=== PATIENT | female | born 1960 | race Caucasian/White ===

== ENCOUNTER 2017-10-24 11:03 | Emergency (ER) | payer SELFPAY ==
[~2017-10-24 11:03] MED LIST: CLIN150 PO; IBUP-232 PO; NORC5TAB PO
[2017-10-24 11:06] VITALS: BP 117/70; PULSE 61; RESP 17; TEMP 97.9; O2SAT 98
--- NOTE | 2017-10-24 11:22 | PD ---
HPI Chief Complaint: Oral / Dental Pain or Problem Time Seen by Provider: 11:13 Travel History International Travel<30 days: No Contact w/Intl Traveler<30days: No Traveled to known affect area: No History of Present Illness HPI 57 y female has noticed these lesions on her tongue for approximately 1-2 years. States that within the last 1-2 months they have become more painful and she is having difficulty with talking and swallowing. She is here today because her mother insisted she come in. Patient denies fever, chills, chest pain, or significant shortness of breath. Does state that she has occasional lightheadedness but none today. Also states she concerned because she has unexplained weight loss. She does smoke. She is here with her mother today who is concerned or her well-being. Apparently, pt has not been able to follow up with a primary secondary to insurance changes. PFSH Past Medical History Asthma: Yes Anxiety: Yes Depression: Yes Diminished Hearing: No Immunizations Current: No ?: Not Menopausal: Yes Tubal Ligation: Yes Past Surgical History Appendectomy: Yes Social History Alcohol Use: Yes Tobacco Use: Yes Substance Use: Yes (ALCOHOL TONIGHT) Allergies-Medications (Allergen,Severity, Reaction): Coded Allergies: penicillin G (Unverified Allergy, Severe, HIVES, 10/24/17) Reported Meds & Prescriptions Reported Meds & Active Scripts Active Magic Mouthwash Adult Liq (Multi-Ingredient Mouthwash/Gargle) 120 Ml Susp 10 Ml SWISH-SWAL ACHS 10 Days Each 5mL contains: Nystatin 200,000units, Diphenhydramine 4.25mg, Viscous Lidocaine 10mg, Deluca syrup 0.8 mL Cleocin (Clindamycin HCl) 150 Mg Cap 150 Mg PO Q6H Ibuprofen 600 Mg Tab 600 Mg PO Q6H PRN [place] (Hydrocodone-Acetaminophen) 5-325 mg Tab 1-2 Tab PO Q6H PRN Review of Systems Except as stated in HPI: all other systems reviewed are Neg Physical Exam Narrative GENERAL: Well developed, appears older than stated age, thin. SKIN: Warm and dry. HEAD: Normocephalic. EYES: No scleral icterus. No injection or drainage. Mouth: sublingual area- cauliflower appearing lesion, approx 5mm x 2mm, non friable with white plaques in surrounding mucosa. NECK: Supple, trachea midline. No JVD or lymphadenopathy. Mild TTP to anterior cervical chain CARDIOVASCULAR: Regular rate and rhythm without murmurs, gallops, or rubs. RESPIRATORY: Breath sounds equal bilaterally. No accessory muscle use. GASTROINTESTINAL: Abdomen soft, non-tender, nondistended. MUSCULOSKELETAL: No cyanosis, or edema. BACK: Nontender without obvious deformity. No CVA tenderness. Data Data Last Documented VS Vital Signs Date Time Temp Pulse Resp B/P (MAP) Pulse Ox O2 Delivery O2 Flow Rate FiO2 10/24/17 11:41 10/24/17 11:06 97.9 61 17 98 Room Air Orders Orders Ed Discharge Order (10/24/17 11:24) MDM Medical Decision Making Medical Screen Exam Complete: Yes Emergency Medical Condition: Yes Differential Diagnosis Oral candidiasis versus tongue lesion vs cellulitis Narrative Course 57 y female has noticed these lesions on her tongue for approximately 1-2 years. States that within the last 1-2 months they have become more painful and she is having difficulty with talking and swallowing. She is here today because her mother insisted she come in. Patient denies fever, chills, chest pain, or significant shortness of breath. Does state that she has occasional lightheadedness but none today. Also states she concerned because she has unexplained weight loss. She does smoke. She is here with her mother today who is concerned or her well-being. Apparently, pt has not been able to follow up with a primary secondary to insurance changes. Vital signs stable Physical exam consistent with oral candidiasis and tongue lesion. H&P concerning for a malignant sublingual lesion. I discussed with this patient in depth about the possible diagnoses but advised that a primary care physician would be the most appropriate place to initiate the process of diagnosis. Pt and mother stated they would immediately go to the [facility] for evaluation. Discharged with magic mouthwash for comfort and treatment of infection. Pt advised to return to the ED for worsening symptoms. Diagnosis Primary Impression: Oral candidiasis Additional Impression: Lesion of tongue Referrals: [facility] Additional Instructions: Follow up with [facility] as soon as possible. Use the magic mouth rinse for symptom relief. You only need Magic mouthwash today. Scripts Lzmactbb-Vwgzzepxcbfopzs-Pvxhseosw Liq (Magic Mouthwash Adult Liq) 120 Ml Susp 10 ML SWISH-SWAL ACHS for Mouth sores for 10 Days, #120 ML 0 Refills Each 5mL contains: Nystatin 200,000units, Diphenhydramine 4.25mg, Viscous Lidocaine 10mg, Deluca syrup 0.8 mL Prov: Mason Corbin MD 10/24/17 Disposition: 01 DISCHARGE HOME Condition: Stable Gardenia Michaud Oct 24, 2017 11:22
[2017-10-24] MEDS ORDERED: MAGICADU2 SWISH-SWAL (11:26)
[2017-10-24] MEDS ORDERED: NYSTAT/DIPHENHY/LIDO MOUTHWASH (Adult) 120ML SWISH-SWAL SCH (13:00)
== END 2017-10-24 11:41 | disposition home or self-care (01) ==
LOC: NEPK 11:03
DX: B37.0 Candidal stomatitis (principal); K14.8 Other diseases of tongue; Z72.0 Tobacco use
CPT/HCPCS: 99283